=== PATIENT | female | born 1985 | race Caucasian/White ===

== ENCOUNTER 2022-10-30 01:14 | Observation (INO) | payer SELFPAY ==
[~2022-10-30] VITALS: Ht 160.6 cm; Wt 107.3 kg
[2022-10-30 01:46] LABS: BASOPHILS % (AUTO) 0 % (0-10); EOSINOPHILS # (AUTO) 0.1 10^3/uL (0.0-0.3); EOSINOPHILS % (AUTO) 2 % (0-10); HEMATOCRIT 45 % (35-52); LYMPHOCYTES % (AUTO) 41 % (12-44); MEAN CORPUSCULAR HEMOGLOBIN 28 pg (25-34); MEAN CORPUSCULAR HGB CONC 34 g/dL (32-36); MEAN CORPUSCULAR VOLUME 82 fL (80-99); MEAN PLATELET VOLUME 8.8 fL (9.0-12.2); MONOCYTES # (AUTO) 0.5 10^3/uL (0.0-1.0); MONOCYTES % (AUTO) 10 % (0-12); NEUTROPHILS # (AUTO) 2.2 10^3/uL (1.8-7.8); NEUTROPHILS % (AUTO) 46 % (42-75); PLATELET COUNT 170 10^3/uL (130-400); WHITE BLOOD COUNT 4.9 10^3/uL (4.3-11.0)
[2022-10-30] MEDS ORDERED: LACTATED RINGERS 1,000 ML IV STA (01:47)
--- NOTE | 2022-10-30 01:53 | ED Psychosocial ---
General Chief Complaint: Psych/Social Disorder Stated Complaint: MENTAL BREAKDOWN Source: patient, EMS Exam Limitations: no limitations History of Present Illness Date Seen by Provider: Oct 30, 2022 Time Seen by Provider: 01:19 Initial Comments This 37-year-old woman presents to the emergency room via EMS after ingesting rubbing alcohol in a quantity of about 700 mL of 91% isopropyl alcohol. Ingestion started around 1400. Patient normally drinks a fifth of vodka daily. She had no access to alcohol today and therefore substituted with isopropyl alcohol. She has been recently estranged from her mother in [place] and came to [place] to live with her brother. However, the living conditions at her brother's home are deplorable with bedbugs and a very unkept home. EMS workers report they intend to hotline the home because children are living in an unacceptable conditions. Patient additionally took hydroxyzine 50 mg after drinking the alcohol to help her calm down. She has previously been on numerous psychiatric medications including Lamictal, Abilify, hydroxyzine, trazodone, Lexapro, baclofen, and omeprazole, none of which she is currently taking. She has a history of anxiety, depression, insomnia, bipolar, and agoraphobia. She admits to using methamphetamine and heroin about 3 weeks ago. Allergies and Home Medications Allergies Coded Allergies: Latex, Natural Rubber (Unverified Allergy, Unknown, 10/30/22) Patient Home Medication List Home Medication List Reviewed: Yes No Active Prescriptions or Reported Meds Review of Systems Constitutional: no symptoms reported EENTM: no symptoms reported Respiratory: no symptoms reported Cardiovascular: no symptoms reported Gastrointestinal: see HPI, abdominal pain Genitourinary: no symptoms reported : No Musculoskeletal: no symptoms reported Skin: no symptoms reported Psychiatric/Neurological: See HPI Past Yowyrey-Wfilza-Izzqpq Hx Patient Social History Tobacco Use?: Yes Tobacco type used: Cigarettes Smoking Status: Current Everyday Smoker Substance use?: Yes Substance type: Methamphetamine, Opiates/Opioids (heroin) Alcohol Use?: Yes Alcohol Frequency: Daily Past Medical History Surgeries: Yes (D&C) Orthopedic (ankle) Respiratory: No Cardiac: No Neurological: No : No Genitourinary: No Gastrointestinal: Yes Liver Disease/Jaundice Musculoskeletal: No Endocrine: No HEENT: No Cancer: No Psychosocial: Yes (Agoraphobia, alcohol dependence) Sleep Difficulties, Anxiety, Bipolar, Depression Physical Exam Vital Signs - First Documented 10/30/22 01:15 Temp 37.0 Pulse 119 Resp 20 B/P (MAP) 130/102 (111) Pulse Ox 98 O2 Delivery Room Air Capillary Refill : Height, Weight, BMI Height: '" Weight: lbs. oz. kg; BMI Method: General Appearance: WD/WN, mild distress (tearful) HEENT: normal ENT inspection, pharynx normal Neck: normal inspection Respiratory: lungs clear, normal breath sounds, no respiratory distress Cardiovascular: no edema, tachycardia Gastrointestinal: normal bowel sounds, soft; No distended; tenderness (upper abdomen) Extremities: non-tender, normal inspection Neurologic/Psychiatric: no motor/sensory deficits, alert, normal mood/affect, oriented x 3 Appearance/Memory: appropriate appearance Behavior/Eye Contact: cooperative, good eye contact Thoughts/Hallucinations: other (tearful, denies SI or HI) Skin: normal color, warm/dry Progress/Results/Core Measures Results/Orders Lab Results Laboratory Tests Test 10/31/22 05:32 Range/Units White Blood Count 3.0 L 4.3-11.0 10^3/uL Red Blood Count 4.25 3.80-5.11 10^6/uL Hemoglobin 11.9 # 11.5-16.0 g/dL Hematocrit 36 35-52 % Mean Corpuscular Volume 86 80-99 fL Mean Corpuscular Hemoglobin 28 25-34 pg Mean Corpuscular Hemoglobin Concent 33 32-36 g/dL Red Cell Distribution Width 16.7 H 10.0-14.5 % Platelet Count 105 L 130-400 10^3/uL Mean Platelet Volume 9.0 9.0-12.2 fL Percent Immature Platelet Fraction 1.7 0.0-7.6 % Sodium Level 139 135-145 MMOL/L Potassium Level 3.3 L 3.6-5.0 MMOL/L Chloride Level 108 H 98-107 MMOL/L Carbon Dioxide Level 19 L 21-32 MMOL/L Anion Gap 12 5-14 MMOL/L Blood Urea Nitrogen 4 L 7-18 MG/DL Creatinine 0.85 0.60-1.30 MG/DL Estimat Glomerular Filtration Rate 91 BUN/Creatinine Ratio 5 Glucose Level 105 70-105 MG/DL Calcium Level 8.2 L 8.5-10.1 MG/DL Magnesium Level 1.4 L 1.6-2.4 MG/DL My Orders Medications Given in ED Vital Signs/I&O Progress Progress Note : Progress Note Patient was interviewed and examined. Poison control was contacted. They recommended symptomatic care. Patient had epigastric pain and tenderness and was therefore treated with Protonix, GI cocktail, and Zofran. She had refractory nausea and a scopolamine patch was placed. IV hydration was provided. She was found to have severe hypokalemia. Replacement was initiated by IV route. Patient was ultimately admitted to help facilitate further potassium replacement via IV route. She also needs a social work consultation because of her living situation and history of substance abuse. I discussed the case with Dr. Jhaveri (hospitalist) who excepted admission. Alcohol withdrawal protocol was ordered. Patient received Xanax and Ativan for her anxiousness. All labs were reviewed by me in their entirety including CBC, CMP, alcohol, UDS, urinalysis, lipase. EKG was interpreted by me. Poison control was consulted by me as well. Initial ECG Impression Date: Oct 30, 2022 Initial ECG Impression Time: 01:46 Initial ECG Rate: 103 Initial ECG Rhythm: S.Tach Comment Sinus tachycardia with no ST elevation or depression. No abnormal intervals or axis deviation. Departure Communication (Admissions) Time/Spoke to Admitting Phy: 03:20 Dr. Jhaveri Impression Primary Impression: Hypokalemia Additional Impressions: Ingestion of toxic substance Polysubstance abuse Epigastric pain Nausea Alcohol dependence Qualified Codes: F10.288 - Alcohol dependence with other alcohol-induced disorder Unsatisfactory living conditions Disposition: ADMITTED INPATIENT Condition: Improved Admissions Decision to Admit Reason: Admit from ER (General) Decision to Admit/Date: Oct 30, 2022 Time/Decision to Admit Time: 03:20 Departure-Patient Inst. Referrals: NO,LOCAL PHYSICIAN (PCP/Family) Primary Care Physician Scripts No Active Prescriptions or Reported Meds GUIDO PINEDA MD Oct 30, 2022 01:53
[2022-10-30 01:54] LABS: ALBUMIN 4.3 GM/DL (3.2-4.5); CHLORIDE 104 MMOL/L (98-107); SODIUM 140 MMOL/L (135-145)
[2022-10-30 01:57] LABS: GLUCOSE 102 MG/DL (70-105); TOTAL PROTEIN 8.3 GM/DL (6.4-8.2)
[2022-10-30 01:58] LABS: CARBON DIOXIDE 18 MMOL/L (21-32)
[2022-10-30 01:59] LABS: BILIRUBIN,TOTAL 0.5 MG/DL (0.1-1.0)
[2022-10-30] MEDS ORDERED: PANTOPRAZOLE 40 MG (PROTONIX) VIAL IV ONE (02:00)
[2022-10-30] MEDS ORDERED: ONDANSETRON 4 MG/2 ML (SDV) Z0FRAN IVP ONE (02:00)
[2022-10-30] MEDS ORDERED: ANTACID SUSP 30 ML UDC (MYLANTA) PO ONE (02:00)
[2022-10-30] MEDS ORDERED: LIDOCAINE 2% VISCOUS 15 ML UDC PO ONE (02:00)
[2022-10-30 02:01] LABS: ALKALINE PHOSPHATASE 79 U/L (40-136); CREATININE SERUM 0.94 MG/DL (0.60-1.30); GFR ESTIMATED 81; POTASSIUM 2.6 MMOL/L (3.6-5.0)
[2022-10-30 02:02] LABS: BUN/CREATININE RATIO 4
[2022-10-30 02:03] LABS: ACETAMINOPHEN < 10 UG/ML (10-30); SALICYLATE < 5.0 MG/DL (5.0-20.0)
[2022-10-30 02:04] LABS: ALANINE AMINOTRANSFERASE 63 U/L (0-55)
[2022-10-30 02:32] LABS: BILIRUBIN,URINE NEGATIVE (NEGATIVE); CLARITY,URINE CLOUDY; COLOR,URINE YELLOW; GLUCOSE, URINE (UA) NEGATIVE (NEGATIVE); KETONES,URINE NEGATIVE (NEGATIVE); LEUKOCYTE ESTERASE ,URINE NEGATIVE (NEGATIVE); NITRITE,URINE NEGATIVE (NEGATIVE); PROTEIN,URINE 1+ (NEGATIVE)
[2022-10-30] MEDS ORDERED: NS IV 1000 ML 1,000 ML IV STA (02:32)
[2022-10-30 02:38] LABS: AMPHETAMINE SCREEN, URINE POSITIVE (NEGATIVE); BACTERIA,URINE LARGE /HPF; BARBITURATE SCREEN URINE NEGATIVE (NEGATIVE); BENZODIAZEPINES SCREEN URINE NEGATIVE (NEGATIVE); CANNABINOID SCREEN, URINE NEGATIVE (NEGATIVE); COCAINE SCREEN URINE NEGATIVE (NEGATIVE); METHADONE STAT NEGATIVE (NEGATIVE); OPIATE SCREEN URINE NEGATIVE (NEGATIVE); OXYCODONE STAT NEGATIVE (NEGATIVE); PROPOXYPHENE STAT NEGATIVE (NEGATIVE); RBC,URINE RARE /HPF; SQUAMOUS EPITHELIAL CELL,UR 0-2 /HPF; TRICYCLIC ANTIDEPRESSANTS SCRE NEGATIVE (NEGATIVE); WBC,URINE 0-2 /HPF
[2022-10-30] MEDS ORDERED: POTASSIUM CL 10MEQ/50ML IVPB 50 ML IV ONE (02:45)
[2022-10-30] MEDS ORDERED: ALPRAZolam 0.25 MG (XANAX) TAB PO ONE (03:00)
[2022-10-30 03:18] LABS: INR 1.1 (0.8-1.4); PROTHROMBIN TIME PATIENT 14.5 SEC (12.2-14.7)
[2022-10-30] MEDS ORDERED: LORazepam 0.5 MG (ATIVAN) TABLET PO STA (03:59)
[2022-10-30] MEDS ORDERED: SCOPOLAMINE 1.5 MG (TRANSDERM-SCOP) PATCH TD ONE (04:00)
[2022-10-30 05:09] VITALS: BP 148/67
[2022-10-30] MEDS ORDERED: ONDANSETRON 4 MG/2 ML (SDV) Z0FRAN IV PRN (05:15)
[2022-10-30] MEDS ORDERED: 1/2 NS IV SOLUTION 1,000 ML IV PRN (05:15)
[2022-10-30] MEDS ORDERED: D5 1/2 NS 1000 ML IV SOLUTION 1,000 ML IV PRN (05:15)
[2022-10-30] MEDS ORDERED: ANTACID SUSP 30 ML UDC (MYLANTA) PO PRN (05:15)
[2022-10-30] MEDS ORDERED: SENNA W/DOCUSATE (SENOKOT S) TABLET PO PRN (05:15)
[2022-10-30] MEDS ORDERED: LORazepam INJ 2 MG/ML (ATIVAN) VIAL IM/IV PRN (05:15)
[2022-10-30] MEDS ORDERED: ONDANSETRON 4 MG (ZOFRAN) ORAL DISSOLVE TAB SL PRN (05:15)
[2022-10-30] MEDS ORDERED: LORazepam INJ 2 MG/ML (ATIVAN) VIAL IV PRN (05:15)
[2022-10-30] MEDS: NS IV 1000 ML 1,000 ML IV SCH ×4 (05:21→20:44)
[2022-10-30] MEDS: POTASSIUM CL 10MEQ/50ML IVPB 50 ML IV SCH ×5 (05:22→12:30)
[2022-10-30] MEDS: LORazepam 1 MG (ATIVAN) TAB PO PRN ×9 (05:40→18:48)
[2022-10-30] MEDS: MULTIVIT W/MINERALS TAB (THERAGRAN M) PO SCH (06:42)
[2022-10-30] MEDS: PANTOPRAZOLE 40 MG (PROTONIX) TAB PO SCH (06:42)
[2022-10-30] MEDS: THIAMINE 100 MG (VITAMIN B-1) TAB PO SCH (06:42)
[2022-10-30 08:00] VITALS: BP 143/87
[2022-10-30] MEDS: FOLIC ACID 1 MG TAB PO SCH (08:03)
[2022-10-30] MEDS: MAGNESIUM OXIDE (MAG-OX)400 MG TAB PO SCH ×2 (08:04→19:37)
[2022-10-30 11:35] VITALS: BP 133/73
--- NOTE | 2022-10-30 13:54 | History & Physical-Hospitalist ---
History of Present Illness HPI/Chief Complaint Patient is a 37-year-old female with past medical history of alcohol abuse who presented to the emergency department after appropriate alcohol ingestion. During my exam she is sleeping soundly and only responded to sternal rub. She opened her eyes and told me she just wanted to sleep and then rolled over. All history is obtained from the records because of this. Apparently she consumed 700 mL of isopropyl alcohol because she did not have access to any other alcohol today. She normally drinks 1/5 of vodka per day. She recently moved here from [place] and has been staying with her brother. She was found to be hypokalemic and was admitted for further management. Source: patient Date Seen 10/30/22 Time Seen by a Provider: 10:30 Attending Physician No,Local Physician PCP Admitting Physician: Graham Jhaveri MD Attending Physician: Graham Jhaveri MD Referring Physician Date of Admission Oct 30, 2022 at 03:32 Home Medications & Allergies Home Medications Reviewed patient Home Medication Reconciliation performed by pharmacy medication reconciliations armorer technician and/or nursing. Patients Allergies have been reviewed. Allergies Allergies Coded Allergies Latex, Natural Rubber (Unverified Allergy, Unknown, 10/30/22) Past Rnzairj-Wdrbfn-Ljeagi Hx Patient Social History Tobacco Use?: Yes Tobacco type used: Cigarettes Smoking Status: Current Everyday Smoker Use of E-Cig and/or Vaping dev: No Substance use?: Yes Substance type: Amphetamines, Methamphetamine Additional substance use comme: HEROIN Substance frequency: Once in a while Alcohol Use?: Yes Alcohol type: Hard Liquor Additional alcohol type: VODKA Alcohol Frequency: Daily Additional Alcohol Comments: DRINKS A FIFTH DAILY Pt feels they are or have been: No Immunizations Up To Date First/Initial COVID19 Vaccinat: NONE Tetanus Booster (TDap): More Than 5 Years Hepatitis A: Yes Hepatitis B: Yes Current Status status: No Advance Directives: No Communicates: Verbally Primary Language: Dominican Preferred Spoken Language: Dominican Is interpretation needed?: No Sensory deficits: Vision impairment Implanted or Applied Medical D: Orthopedic hardware Past Medical History Nursing Suicide Risk Notes: DENIES SUICIDAL IDEATION. Reports history of anxiety, depression, insomnia, bipolar, and agoraphobia to ER. Review of Systems Constitutional: see HPI Physical Exam Physical Exam Vital Signs Vital Signs - First Documented 10/30/22 01:15 Temp 37.0 Pulse 119 Resp 20 B/P (MAP) 130/102 (111) Pulse Ox 98 O2 Delivery Room Air Capillary Refill : Less Than 3 Seconds Height, Weight, BMI Height: '" Weight: lbs. oz. kg; 41.60 BMI Method: General Appearance: Obese, Other (sleeping soundly) Respiratory: Lungs Clear, No Respiratory Distress Cardiovascular: Regular Rate, Rhythm, No Murmur Gastrointestinal: Normal Bowel Sounds, Non Tender, Soft Neurologic/Psychiatric: Alert, Other (sleeping did not want to wake up to participate in exam) Skin: Other (multiple abrasions with excoriations all over both arms and some on legs) Results Results/Procedures Labs Laboratory Tests 10/30/22 01:38 Patient resulted labs reviewed. Assessment/Plan Admission Diagnosis Hypokalemia Admission Status: Observation Assessment and Plan Hypokalemia Isopropyl alcohol ingestion Alcohol dependence Polysubstance abuse Reported bed bug infestation Transaminitis Morbid Obesity Poison control contacted and recommended supportive care erika [employer] consulting services manager consulted, appreciate their assistance [facility] protocol Diagnosis/Problems Diagnosis/Problems (1) Obesity Qualifiers: Obesity type: unspecified obesity type Obesity classification: adult class 3 (BMI >= 40) Serious obesity comorbidity presence: without serious comorbidity Body mass index: BMI 40.0-44.9 Qualified Codes: E66.01 - Morbid (severe) obesity due to excess calories; Z68.41 - Body mass index [BMI] 40.0- 44.9, adult (2) Infestation by bed bug (3) Transaminitis (4) Ingestion of toxic substance Status: Acute (5) Unsatisfactory living conditions Status: Acute (6) Polysubstance abuse Status: Acute (7) Alcohol dependence Status: Acute Qualifiers: Substance use status: other alcohol-induced disorder Qualified Codes: F10.288 - Alcohol dependence with other alcohol-induced disorder (8) Hypokalemia Status: Acute ELIEZER MICHAELS MD Oct 30, 2022 13:54
[2022-10-30 16:05] VITALS: BP 127/71
[2022-10-30 20:01] VITALS: BP 122/59
[2022-10-30 23:46] VITALS: BP 146/84
[2022-10-31] MEDS: LORazepam 1 MG (ATIVAN) TAB PO PRN ×2 (00:01→02:04)
[2022-10-31] MEDS: NS IV 1000 ML 1,000 ML IV SCH ×2 (03:27→10:05)
[2022-10-31 03:37] VITALS: BP 142/78
[2022-10-31 05:48] LABS: HEMOGLOBIN 11.9 g/dL (11.5-16.0)
[2022-10-31 05:59] LABS: POTASSIUM 3.3 MMOL/L (3.6-5.0)
[2022-10-31 06:01] LABS: CALCIUM 8.2 MG/DL (8.5-10.1)
[2022-10-31 06:05] LABS: CREATININE SERUM 0.85 MG/DL (0.60-1.30)
[2022-10-31 06:07] LABS: MAGNESIUM 1.4 MG/DL (1.6-2.4)
[2022-10-31 08:06] VITALS: BP 145/75
[2022-10-31] MEDS: MULTIVIT W/MINERALS TAB (THERAGRAN M) PO SCH (10:04)
[2022-10-31] MEDS: THIAMINE 100 MG (VITAMIN B-1) TAB PO SCH (10:04)
[2022-10-31] MEDS: PANTOPRAZOLE 40 MG (PROTONIX) TAB PO SCH (10:04)
[2022-10-31] MEDS: FOLIC ACID 1 MG TAB PO SCH (10:04)
[2022-10-31] MEDS: MAGNESIUM OXIDE (MAG-OX)400 MG TAB PO SCH (10:05)
[2022-10-31] MEDS: MAGNESIUM 1 GM/100 ML IVPB 100 ML IV SCH ×2 (10:05→11:05)
--- NOTE | 2022-10-31 11:17 | Discharge Summary ---
Diagnosis/Chief Complaint Date of Admission Oct 30, 2022 at 03:32 Date of Discharge Discharge Date: Oct 31, 2022 Admission Diagnosis Hypokalemia Primary Care No,Local Physician Discharge Diagnosis (1) Obesity (2) Infestation by bed bug (3) Transaminitis (4) Ingestion of toxic substance Status: Acute (5) Unsatisfactory living conditions Status: Acute (6) Polysubstance abuse Status: Acute (7) Alcohol dependence Status: Acute (8) Hypokalemia Status: Acute Discharge Summary Discharge Physical Exam Allergies: Coded Allergies: Latex, Natural Rubber (Unverified Allergy, Unknown, 10/30/22) Vitals & I&Os Vital Signs Date Time Temp Pulse Resp B/P (MAP) Pulse Ox O2 Delivery O2 Flow Rate FiO2 10/31/22 08:06 37.9 113 20 145/75 (98) Room Air 10/31/22 03:37 94 General Appearance: No Apparent Distress, Obese Respiratory: Lungs Clear Cardiovascular: Regular Rate, Rhythm Neurologic/Psychiatric: Alert, Oriented x3 Hospital Course Pt was admitted due to hypokalemia and isopropyl alcohol ingestion. She has a history of alcohol use disorder and was unable to access her normal fifth of vodka a day and so instead drink rubbing alcohol. She was monitored overnight for supportive care per poison control recommendations. She did well. Her potassium was replaced. She was monitored for alcohol withdrawal and had minimal symptoms. Social work was consulted and assisted with getting her set up for addiction treatment with [facility]. She was discharged home in stable and improved condition to follow-up with those appointments for further addiction treatment. Labs (last 24 hrs) Laboratory Tests 10/31/22 05:32: White Blood Count 3.0L, Red Blood Count 4.25, Hemoglobin 11.9#, Hematocrit 36, Mean Corpuscular Volume 86, Mean Corpuscular Hemoglobin 28, Mean Corpuscular Hemoglobin Concent 33, Red Cell Distribution Width 16.7H, Platelet Count 105L, Mean Platelet Volume 9.0, Percent Immature Platelet Fraction 1.7, Sodium Level 139, Potassium Level 3.3L, Chloride Level 108H, Carbon Dioxide Level 19L, Anion Gap 12, Blood Urea Nitrogen 4L, Creatinine 0.85, Estimat Glomerular Filtration Rate 91, BUN/Creatinine Ratio 5, Glucose Level 105, Calcium Level 8.2L, Magnesium Level 1.4L Microbiology 10/30/22 Urine Culture - Preliminary, Resulted Gram Negative Augustus Patient resulted labs reviewed. Pending Labs Laboratory Tests 10/31/22 05:32: White Blood Count 3.0, Red Blood Count 4.25, Hemoglobin 11.9, Hematocrit 36, Mean Corpuscular Volume 86, Mean Corpuscular Hemoglobin 28, Mean Corpuscular Hemoglobin Concent 33, Red Cell Distribution Width 16.7, Platelet Count 105, Mean Platelet Volume 9.0, Percent Immature Platelet Fraction 1.7, Sodium Level 139, Potassium Level 3.3, Chloride Level 108, Carbon Dioxide Level 19, Anion Gap 12, Blood Urea Nitrogen 4, Creatinine 0.85, Estimat Glomerular Filtration Rate 91, BUN/Creatinine Ratio 5, Glucose Level 105, Calcium Level 8.2, Magnesium Lev el 1.4 Discussion & Recommendations Discharge Planning: >30 minutes discharge planning Discharge Instructions to patient/family Please see electronic discharge instructions given to patient. Copy Copies To 1: [facility] [place] [place] Problem Qualifiers (1) Obesity: Obesity type: unspecified obesity type Obesity classification: adult class 3 (BMI >= 40) Serious obesity comorbidity presence: without serious comorbidity Body mass index: BMI 40.0-44.9 Qualified Codes: E66.01 - Morbid (severe) obesity due to excess calories; Z68.41 - Body mass index [BMI] 40.0-44.9, adult (2) Alcohol dependence: Substance use status: other alcohol-induced disorder Qualified Codes: F10.288 - Alcohol dependence with other alcohol-induced disorder ELIEZER MICHAELS MD Oct 31, 2022 11:17
--- NOTE | 2022-10-31 11:51 | Discharge Inst-Simple/Standard ---
Discharge Inst-Standard Patient Instructions/Follow Up Plan of Care/Instructions/FU: Please continue to take your medications as written. Please follow up with [facility] as directed on your follow up cards to follow up this hospital stay. Activity as Tolerated: Yes Discharge Diet: No Restrictions Return to The Hospital For: Chest pain, headaches, tremors, confusion, seizures, shortness of breath, fever, weakness, if you feel you are getting worse. ELIEZER MICHAELS MD Oct 31, 2022 11:51
[2022-10-31 11:52] VITALS: BP 129/64
== END 2022-10-31 11:51 | disposition home or self-care (01) ==
LOC: ER 01:19 → UNDOADMOB 03:32 → 4TH 03:32 → UNDODISOB 10-31 11:51
PROVIDERS: ADMIT Internal Medicine; ATTEND Internal Medicine
DX: E66.01 Morbid (severe) obesity due to excess calories (principal); B88.8 Other specified infestations; R74.01 Elevation of levels of liver transaminase levels; T18.9XXA Foreign body of alimentary tract, part unspecified, initial encounter; E87.6 Hypokalemia; T51.2X1A Toxic effect of 2-Propanol, accidental (unintentional), initial encounter; F19.10 Other psychoactive substance abuse, uncomplicated; F10.288 Alcohol dependence with other alcohol-induced disorder; F17.210 Nicotine dependence, cigarettes, uncomplicated; Z68.41 Body mass index [BMI] 40.0-44.9, adult; Z59.1 Inadequate housing
CPT/HCPCS: 80048; 80053; 80306; 81000; 83690; 83735 ×2; 84443; 84703; 85025; 85027; 85610; 85730; 87077; 87088; 87186; 93005; 93041; 99283; G0480 ×3; 36415; 80320; 80329; 96361; 96366; 96375; 96376; G0378

== ENCOUNTER 2022-10-31 21:44 | Emergency (ER) | payer SELFPAY ==
[2022-10-31 21:45] VITALS: BP 119/82
[2022-10-31] MEDS ORDERED: LACTATED RINGERS 1,000 ML IV ONE ×2 (22:00→23:00)
[2022-10-31] MEDS ORDERED: LIDOCAINE UROJET 2% GEL 10 ML PKG TOP ONE (22:00)
--- NOTE | 2022-10-31 22:10 | ED Psychosocial ---
General Stated Complaint: ETOH Source: patient, EMS, old records Exam Limitations: intoxication History of Present Illness Date Seen by Provider: Oct 31, 2022 Time Seen by Provider: 21:45 Initial Comments PT ARRIVES VIA EMS FROM HOME EMS REPORT THAT FAMILY CALLED DUE TO PT BEING INTOXICATED. PT HAS A LONG HISTORY OF ALCOHOL ABUSE, STATES SHE HAD NOT DRANK FOR ABOUT 2 YEARS, THEN STARTED DRINKING HEAVILY AGAIN 1 1/2 YEARS AGO PT STATES SHE MOVED HERE FROM [place] 2 WEEKS AGO, CURRENTLY LIVING WITH HER BROTHER. PT STATES FAMILY WANTED HER TO MOVE HERE BECAUSE SHE WAS NOT ABLE TO TAKE CARE OF HERSELF THERE SHE STATES SHE IS NOT HAPPY WITH THE LIVING SITUATION HERE. SHE ALSO MENTIONS LIVING IN [place], BUT IT IS UNCLEAR WHEN SHE WAS LIVING THERE SHE STATES SHE HAS HAD A FIFTH OF VODKA TODAY, STATES NORMALLY SHE DRINKS "ALOT MORE" THAN THAT SHE STATES SHE HAS TAKEN 2 HYDROXYZINE TONIGHT. SHE DENIES ANY SUICIDAL THOUGHTS OR ATTEMPTS. PER EMS, FAMILY REPORTED THERE WERE SOME IBUPROFEN MISSING AND 9 TRAZADONE MISSING. PT DENIES TAKING ANYTHING OTHER THAN THE HYDROXYZINE. PT STATES SHE USED TO BE ON MULTIPLE PSYCH MEDICATIONS, BUT HAS NOT BEEN ON ANY FOR OVER A YEAR. PT HAS ADMITTED TO USING METHAMPHETAMINES, BUT NOT TODAY. EMS REPORTED THAT THERE WERE BED BUGS AT THE RESIDENCE. PT WAS SEEN HERE YESTERDAY, ADMITTED AND RELEASED EARLIER TODAY FOR THIS SAME ISSUE--PT HAD REPORTEDLY BEEN DRINKING RUBBING ALCOHOL AT THAT TIME SHE DID NOT HAVE ANY REGULAR DRINKING ALCOHOL AT THAT TIME SHE ALSO ADMITTED TO TAKING HYDROXYZINE AT THAT TIME WELL. SHE TESTED POSITIVE FOR AMPHETAMINES/METHAMPHETAMINES AT THAT TIME. PT STATES SOON SHE WAS DISMISSED TODAY, SHE WALKED TO THE LIQUOR STORE, AND THEN IMMEDIATELY STARTED DRINKING AGAIN. PT VOICES NO COMPLAINTS AT THIS TIME Allergies and Home Medications Allergies Coded Allergies: Latex, Natural Rubber (Unverified Allergy, Unknown, 10/30/22) Patient Home Medication List Home Medication List Reviewed: Yes No Active Prescriptions or Reported Meds Review of Systems Constitutional: no symptoms reported Respiratory: no symptoms reported Cardiovascular: no symptoms reported Gastrointestinal: no symptoms reported Genitourinary: no symptoms reported (BUT PT HAS URINATED ALL OVER THE EMS COT AND ALL OVER THE AMBULANCE AND ALL OVER THE FLOOR ALL THE WAY INTO ER FROM THE AMBULANCE. ) Musculoskeletal: no symptoms reported Skin: other (MULTIPLE SORES/SCARS/SCABS ON ARMS AND LEGS) Psychiatric/Neurological: See HPI Past Ubirgry-Fhxatg-Yeajjq Hx Patient Social History Tobacco Use?: Yes Tobacco type used: Cigarettes Smoking Status: Current Everyday Smoker Substance use?: Yes Substance type: Amphetamines, Methamphetamine, Misuse of prescript meds Additional substance use comme: HEROIN Substance frequency: Once in a while Alcohol Use?: Yes Alcohol type: Hard Liquor Alcohol Frequency: Daily Immunizations Up To Date First/Initial COVID19 Vaccinat: NONE Past Medical History Surgery/Hospitalization HX: BIPOLAR, ANXIETY, DEPRESSION, INSOMNIA, AGORAPHOBIC, LIVER DISEASE DNC, RIGHT ANKLE Surgeries: Yes Orthopedic Respiratory: No Cardiac: No Neurological: No : No Genitourinary: No Gastrointestinal: Yes Liver Disease/Jaundice Musculoskeletal: Yes (RIGHT ANKLE SURGERY) Endocrine: No (OBESE) HEENT: No Cancer: No Psychosocial: Yes (ALCOHOL AND SUBSTANCE ABUSE; AGORAPHOBIA) Sleep Difficulties, Anxiety, Bipolar, Depression Integumentary: No Blood Disorders: No Family Medical History SOCIAL HISTORY: -SMOKES AT LEAST 1 PPD -ETOH--DRINKS AT LEAST A FIFTH OF VODKA A DAY, FREQUENTLY MORE THAN THAT -DRUGS--METHAMPHETAMINES, AMPHETAMINES, HEROIN, RX DRUGS. PAST SURGICAL HISTORY: -RIGHT ANKLE SURGERY Physical Exam Vital Signs - First Documented 10/31/22 21:45 Temp 36.4 Pulse 110 Resp 16 B/P (MAP) 119/82 (94) Capillary Refill : Height, Weight, BMI Height: '" Weight: lbs. oz. kg; 41.60 BMI Method: General Appearance: WD/WN, no apparent distress, obese, other (DROWSY, SPEECH SOMEWHAT SLURRED, DOES NOT APPEAR TO BE IN ANY DISTRESS OR DISCOMFORT. PT IS UNKEMPT AND MALODOROUS, AND HAS BEEN INCONTINENT OF URINE ) HEENT: PERRL/EOMI Neck: normal inspection Respiratory: normal breath sounds, no respiratory distress, no accessory muscle use Cardiovascular: regular rate, rhythm, no murmur Gastrointestinal: non tender, soft Extremities: normal range of motion, non-tender, no pedal edema, normal capillary refill Neurologic/Psychiatric: no motor/sensory deficits, oriented x 3, other (APPEARS INTOXICATED. ) Appearance/Memory: disheveled Behavior/Eye Contact: cooperative Thoughts/Hallucinations: no apparent hallucination Skin: normal color, warm/dry, other (EXTENSIVE SORES/SCARS/SCABS TO FACE, ARMS AND LEGS. NO BLEEDING OR SIGNS OF INFECTION. ) Progress/Results/Core Measures Results/Orders Lab Results Laboratory Tests Test 10/31/22 21:58 10/31/22 22:05 Range/Units White Blood Count 2.8 L 4.3-11.0 10^3/uL Red Blood Count 4.80 3.80-5.11 10^6/uL Hemoglobin 13.3 11.5-16.0 g/dL Hematocrit 41 35-52 % Mean Corpuscular Volume 85 80-99 fL Mean Corpuscular Hemoglobin 28 25-34 pg Mean Corpuscular Hemoglobin Concent 33 32-36 g/dL Red Cell Distribution Width 16.8 H 10.0-14.5 % Platelet Count 106 L 130-400 10^3/uL Mean Platelet Volume 9.2 9.0-12.2 fL Immature Granulocyte % (Auto) 0 % Neutrophils (%) (Auto) 68 42-75 % Lymphocytes (%) (Auto) 22 12-44 % Monocytes (%) (Auto) 9 0-12 % Eosinophils (%) (Auto) 1 0-10 % Basophils (%) (Auto) 0 0-10 % Neutrophils # (Auto) 1.9 1.8-7.8 10^3/uL Lymphocytes # (Auto) 0.6 L 1.0-4.0 10^3/uL Monocytes # (Auto) 0.2 0.0-1.0 10^3/uL Eosinophils # (Auto) 0.0 0.0-0.3 10^3/uL Basophils # (Auto) 0.0 0.0-0.1 10^3/uL Immature Granulocyte # (Auto) 0.0 0.0-0.1 10^3/uL Percent Immature Platelet Fraction 2.4 0.0-7.6 % Sodium Level 145 135-145 MMOL/L Potassium Level 3.1 L 3.6-5.0 MMOL/L Chloride Level 111 H 98-107 MMOL/L Carbon Dioxide Level 23 21-32 MMOL/L Anion Gap 11 5-14 MMOL/L Blood Urea Nitrogen < 2 L 7-18 MG/DL Creatinine 0.74 0.60-1.30 MG/DL Estimat Glomerular Filtration Rate 107 BUN/Creatinine Ratio 3 Glucose Level 113 H 70-105 MG/DL Calcium Level 8.6 8.5-10.1 MG/DL Corrected Calcium 8.7 8.5-10.1 MG/DL Total Bilirubin 0.3 0.1-1.0 MG/DL Aspartate Amino Transf (AST/SGOT) 66 H 5-34 U/L Alanine Aminotransferase (ALT/SGPT) 49 0-55 U/L Alkaline Phosphatase 74 40-136 U/L Total Protein 7.3 6.4-8.2 GM/DL Albumin 3.9 3.2-4.5 GM/DL Serum Test, Qualitative NEGATIVE NEGATIVE Acetaminophen Level < 10 L 10-30 UG/ML Serum Alcohol 268 H <10 MG/DL Smear Scan YES Urine Color YELLOW Urine Clarity CLEAR Urine pH 7.0 5-9 Urine Specific Stephenson <=1.005 1.016-1.022 Urine Protein NEGATIVE NEGATIVE Urine Glucose (UA) NEGATIVE NEGATIVE Urine Ketones NEGATIVE NEGATIVE Urine Nitrite NEGATIVE NEGATIVE Urine Bilirubin NEGATIVE NEGATIVE Urine Urobilinogen 0.2 < = 1.0 MG/DL Urine Leukocyte Esterase NEGATIVE NEGATIVE Urine RBC (Auto) TRACE-I H NEGATIVE Urine RBC RARE /HPF Urine WBC NONE /HPF Urine Squamous Epithelial Cells RARE /HPF Urine Crystals NONE /LPF Urine Bacteria NEGATIVE /HPF Urine Casts NONE /LPF Urine Mucus NEGATIVE /LPF Urine Culture Indicated NO Urine Opiates Screen NEGATIVE NEGATIVE Urine Oxycodone Screen NEGATIVE NEGATIVE Urine Methadone Screen NEGATIVE NEGATIVE Urine Propoxyphene Screen NEGATIVE NEGATIVE Urine Barbiturates Screen NEGATIVE NEGATIVE Ur Tricyclic Antidepressants Screen NEGATIVE NEGATIVE Urine Phencyclidine Screen NEGATIVE NEGATIVE Urine Amphetamines Screen NEGATIVE NEGATIVE Urine Methamphetamines Screen NEGATIVE NEGATIVE Urine Benzodiazepines Screen POSITIVE H NEGATIVE Urine Cocaine Screen NEGATIVE NEGATIVE Urine Cannabinoids Screen NEGATIVE NEGATIVE My Orders Orders - ALAN WANG DO Ed Iv/Invasive Line Start (10/31/22 21:51) Catheter(Urinary) Insert & Ass 03,15 (10/31/22 21:51) Monitor-Rhythm Ecg Trace Only (10/31/22 21:51) Acetaminophen (10/31/22 21:51) Alcohol (10/31/22 21:51) Cbc With Automated Diff (10/31/22 21:51) Comprehensive Metabolic Panel (10/31/22 21:51) Drug Screen Stat (Urine) (10/31/22 21:51) Hcg,Qualitative Serum (10/31/22 21:51) Ua Culture If Indicated (10/31/22 21:51) Ed Iv/Invasive Line Start (10/31/22 21:51) Lactated Ringers (Lr 1000 Ml Iv Solution (10/31/22 22:00) Lidocaine 2% (Urojet) (Xylocaine Urojet) (10/31/22 22:00) Ed Iv/Invasive Line Start (10/31/22 22:55) Lactated Ringers (Lr 1000 Ml Iv Solution (10/31/22 23:00) Medications Given in ED Current Medications Medications Dose Ordered Sig/Danya Route Start Time Stop Time Status Last Admin Dose Admin Lactated Ringer's 1,000 ml @ 0 mls/hr Q0M ONCE IV 10/31/22 22:00 10/31/22 22:01 DC 10/31/22 22:02 0 MLS/HR Lactated Ringer's 1,000 ml @ 0 mls/hr Q0M ONCE IV 10/31/22 23:00 10/31/22 23:01 DC 10/31/22 23:19 1,000 MLS/HR Vital Signs/I&O 10/31/22 21:45 Temp 36.4 Pulse 110 Resp 16 B/P (MAP) 119/82 (94) Progress Progress Note : Progress Note GIVEN: -IV FLUIDS 0--PT HAS PULLED OUT IV, RIPPED OFF BP CUFF AND O2 SAT MONITOR. IV RESTARTED. PT REMAINS DROWSY, BUT EASILY AWAKENS. NO SNOROUS BREATHING OR HYPOXIA 2358--PT HAS AGAIN PULLED OUT HER IV, SHE HAS DISCONNECTED HER [place] TUBING--NOW URINE LEAKING OUT ALL OVER FLOOR, AND IS STANDING IN THE ROOM, ATTEMPTING TO CLEAN HERSELF WITH BEDDING. SHE IS ABLE TO STAND AND WALK ON HER OWN WITH A STEADY GAIT AND SPEECH IS NO LONGER SLURRED, AND PT IS NOW CURSING AT STAFF AND IS VERY AWAKE AND ALERT. ADVISED HER THAT THERE WAS NO INDICATION FOR ADMIT AT THIS TIME, AND WERE NOW DISMISSING HER. PT HAS NOT VOICED ANY SUICIDAL OR HOMICIDAL THOUGHTS AT ANY TIME SHE HAS NO INTEREST IN ANY KIND OF TREATMENT FOR ALCOHOL OR SUBSTANCE ABUSE. NO FAMILY HAVE CALLED OR CAME TO ER TO CHECK ON PT PT STATES SHE CALLED BROTHER'S NUMBER TO PICK HER UP, BUT NO ANSWER. PT WAS GIVEN PAPER SCRUBS AND HOSPITAL SOCKS TO WEAR HOME, WELL A BLANKET, HER CLOTHING IS SATURATED WITH URINE AND IV FLUIDS VITALS STABLE. PT VOICES NO PHYSICAL COMPLAINTS OF ANY KIND DURING ENTIRE ER STAY REVIEWED PT'S PRIOR VISIT INCLUDING ER VISIT, TEST RESULTS, H&P AND DISCHARGE SUMMARY Departure Impression Primary Impression: Alcohol abuse Additional Impressions: Acute alcoholic intoxication Illicit drug use Hypokalemia Disposition: HOME, SELF-CARE Condition: Stable Departure-Patient Inst. Decision time for Depature: 00:03 Referrals: NO,LOCAL PHYSICIAN (PCP/Family) Primary Care Physician Patient Instructions: Alcohol Use Disorder (DC), ALCOHOL AND SUBSTANCE ABUSE Add. Discharge Instructions: NO ALCOHOL OR DRUGS FOLLOW UP WITH LOCAL DR OF CHOICE FOR FURTHER CARE Scripts No Active Prescriptions or Reported Meds ALAN WANG DO Oct 31, 2022 22:10
[2022-10-31 22:11] LABS: BILIRUBIN,URINE NEGATIVE (NEGATIVE); CLARITY,URINE CLEAR; COLOR,URINE YELLOW; GLUCOSE, URINE (UA) NEGATIVE (NEGATIVE); KETONES,URINE NEGATIVE (NEGATIVE); LEUKOCYTE ESTERASE ,URINE NEGATIVE (NEGATIVE); NITRITE,URINE NEGATIVE (NEGATIVE); PROTEIN,URINE NEGATIVE (NEGATIVE)
[2022-10-31 22:12] LABS: BASOPHILS % (AUTO) 0 % (0-10); HEMOGLOBIN 13.3 g/dL (11.5-16.0); LYMPHOCYTES # (AUTO) 0.6 10^3/uL (1.0-4.0); MONOCYTES # (AUTO) 0.2 10^3/uL (0.0-1.0)
[2022-10-31 22:14] LABS: EOSINOPHILS % (AUTO) 1 % (0-10); HEMATOCRIT 41 % (35-52); LYMPHOCYTES % (AUTO) 22 % (12-44); MEAN CORPUSCULAR HEMOGLOBIN 28 pg (25-34); MEAN CORPUSCULAR HGB CONC 33 g/dL (32-36); MEAN CORPUSCULAR VOLUME 85 fL (80-99); MEAN PLATELET VOLUME 9.2 fL (9.0-12.2); MONOCYTES % (AUTO) 9 % (0-12); NEUTROPHILS # (AUTO) 1.9 10^3/uL (1.8-7.8); NEUTROPHILS % (AUTO) 68 % (42-75); PLATELET COUNT 106 10^3/uL (130-400); WHITE BLOOD COUNT 2.8 10^3/uL (4.3-11.0)
[2022-10-31 22:17] LABS: SMEAR SCAN COMMENT YES
[2022-10-31 22:28] LABS: AMPHETAMINE SCREEN, URINE NEGATIVE (NEGATIVE); BARBITURATE SCREEN URINE NEGATIVE (NEGATIVE); BENZODIAZEPINES SCREEN URINE POSITIVE (NEGATIVE); CANNABINOID SCREEN, URINE NEGATIVE (NEGATIVE); COCAINE SCREEN URINE NEGATIVE (NEGATIVE); METHADONE STAT NEGATIVE (NEGATIVE); OPIATE SCREEN URINE NEGATIVE (NEGATIVE); OXYCODONE STAT NEGATIVE (NEGATIVE); PROPOXYPHENE STAT NEGATIVE (NEGATIVE); TRICYCLIC ANTIDEPRESSANTS SCRE NEGATIVE (NEGATIVE)
[2022-10-31 22:31] LABS: ALBUMIN 3.9 GM/DL (3.2-4.5); CHLORIDE 111 MMOL/L (98-107); POTASSIUM 3.1 MMOL/L (3.6-5.0); SODIUM 145 MMOL/L (135-145)
[2022-10-31 22:32] LABS: CALCIUM 8.6 MG/DL (8.5-10.1)
[2022-10-31 22:34] LABS: GLUCOSE 113 MG/DL (70-105); TOTAL PROTEIN 7.3 GM/DL (6.4-8.2)
[2022-10-31 22:35] LABS: BILIRUBIN,TOTAL 0.3 MG/DL (0.1-1.0); CARBON DIOXIDE 23 MMOL/L (21-32)
[2022-10-31 22:37] LABS: ALKALINE PHOSPHATASE 74 U/L (40-136); CREATININE SERUM 0.74 MG/DL (0.60-1.30); GFR ESTIMATED 107
[2022-10-31 22:38] LABS: BUN/CREATININE RATIO 3
[2022-10-31 22:40] LABS: ALANINE AMINOTRANSFERASE 49 U/L (0-55)
[2022-10-31 22:43] LABS: BACTERIA,URINE NEGATIVE /HPF; RBC,URINE RARE /HPF; SQUAMOUS EPITHELIAL CELL,UR RARE /HPF
== END 2022-11-01 00:15 | disposition home or self-care (01) ==
LOC: EDUNIT# 21:44 → ER 21:45
DX: F10.229 Alcohol dependence with intoxication, unspecified (principal); E87.6 Hypokalemia; F19.90 Other psychoactive substance use, unspecified, uncomplicated; F17.210 Nicotine dependence, cigarettes, uncomplicated; E66.9 Obesity, unspecified; Y90.8 Blood alcohol level of 240 mg/100 ml or more; Z68.41 Body mass index [BMI] 40.0-44.9, adult; Z91.040 Latex allergy status
CPT/HCPCS: 51702; 80053; 80306; 81000; 84703; 85025; 93041; 99284; G0480 ×2; 36415; 80320; 80329

== ENCOUNTER 2022-11-02 16:43 | Emergency (ER) | payer SELFPAY ==
[~2022-11-02] VITALS: Ht 160 cm; Wt 129.2 kg
[2022-11-02] MEDS ORDERED: NS IV 1000 ML 1,000 ML IV SCH ×2 (17:15→20:45)
[2022-11-02 17:33] LABS: EOSINOPHILS % (AUTO) 0 % (0-10); MEAN CORPUSCULAR HEMOGLOBIN 28 pg (25-34)
[2022-11-02 17:35] LABS: BASOPHILS % (AUTO) 1 % (0-10); HEMATOCRIT 43 % (35-52); LYMPHOCYTES # (AUTO) 1.2 10^3/uL (1.0-4.0); LYMPHOCYTES % (AUTO) 22 % (12-44); MEAN CORPUSCULAR HGB CONC 33 g/dL (32-36); MEAN CORPUSCULAR VOLUME 84 fL (80-99); MEAN PLATELET VOLUME 9.2 fL (9.0-12.2); MONOCYTES # (AUTO) 0.3 10^3/uL (0.0-1.0); MONOCYTES % (AUTO) 6 % (0-12); NEUTROPHILS # (AUTO) 3.8 10^3/uL (1.8-7.8); NEUTROPHILS % (AUTO) 71 % (42-75); PLATELET COUNT 132 10^3/uL (130-400); WHITE BLOOD COUNT 5.3 10^3/uL (4.3-11.0)
[2022-11-02 17:39] LABS: ALBUMIN 3.9 GM/DL (3.2-4.5); CHLORIDE 106 MMOL/L (98-107); SODIUM 143 MMOL/L (135-145)
[2022-11-02 17:42] LABS: GLUCOSE 117 MG/DL (70-105); TOTAL PROTEIN 7.3 GM/DL (6.4-8.2)
[2022-11-02 17:43] LABS: CARBON DIOXIDE 23 MMOL/L (21-32)
[2022-11-02 17:44] LABS: BILIRUBIN,TOTAL 0.6 MG/DL (0.1-1.0)
[2022-11-02 17:46] LABS: ALKALINE PHOSPHATASE 84 U/L (40-136); CREATININE SERUM 0.88 MG/DL (0.60-1.30); GFR ESTIMATED 87
[2022-11-02 17:47] LABS: BUN/CREATININE RATIO 5
[2022-11-02 17:48] LABS: SALICYLATE < 5.0 MG/DL (5.0-20.0)
[2022-11-02 17:49] LABS: ALANINE AMINOTRANSFERASE 113 U/L (0-55)
[2022-11-02] MEDS ORDERED: KCL 20 MEQ TAB (K-DUR) PO ONE (18:00)
[2022-11-02] MEDS ORDERED: FOLIC ACID 1 MG TAB PO ONE (18:00)
[2022-11-02] MEDS ORDERED: THIAMINE 100 MG/ML 2 ML (VITAMIN B-1) VIAL IV ONE (18:00)
--- NOTE | 2022-11-02 18:12 | ED General ---
General Chief Complaint: Substance Abuse Stated Complaint: INTOXICATED Nursing Triage Note: pt presents to ED via EMS with reports of drinking a full bottle of rubbing alcohol earlier today. pt states she usually drinks a fifth of vodka daily but was out of vodka so resorted to stealing the rubbing alcohol from [facility]. pt is homeless and claims to camp outside of [facility]. pt denies SI/HI. Source of Information: Patient Exam Limitations: Intoxication History of Present Illness Date Seen by Provider: Nov 02, 2022 Time Seen by Provider: 16:55 Initial Comments 37-year-old female presents to the ED via EMS from the [facility] with reports of drinking rubbing alcohol. She states she did not do this to kill herself, states she is an alcoholic and drink it because she is unable to get liquor. States she normally drinks 1/5 of vodka a day. She states she has been drinking rubbing alcohol for the last 3 days due to being unable to get regular alcohol. She is unsure how much she drank, unable to state when she last drank it. States she stole it from the [facility], states they use it to clean the beds there. She states that she wants to get clean. States she has withdrawn in the past and had seizures. At first patient was conversing with this provider and answering all questions, when this provider asked her orientation questions, she stated she did not know the answers, and then was unable to answer other questions regarding how much rubbing alcohol she has been drinking. She is stated that she is in [place], and and that it is August 2020. She reported abdominal burning and nausea. She was able to report that she has a past medical history of GERD which she takes omeprazole for. And she has had a D&C and ankle surgery. Patient was admitted last week on 10/30 for hypokalemia as well as drinking rubbing alcohol. At that time, according to the notes, she had minimal alcohol withdrawal symptoms. Allergies and Home Medications Allergies Coded Allergies: Latex, Natural Rubber (Unverified Allergy, Unknown, 10/30/22) Patient Home Medication List Home Medication List Reviewed: Yes No Active Prescriptions or Reported Meds Review of Systems Review of Systems Constitutional: see HPI Past Hcqagqw-Scuzpo-Neggsj Hx Patient Social History Tobacco Use?: Yes Tobacco type used: Cigarettes Smoking Status: Current Everyday Smoker Substance use?: No Alcohol Use?: Yes Alcohol type: Hard Liquor Alcohol Frequency: Daily Pt feels they are or have been: No Immunizations Up To Date Influenza Vaccine Up-to-Date: No; Not Current First/Initial COVID19 Vaccinat: NONE Second COVID19 Vaccination Michael: NONE Third COVID19 Vaccination Date: NONE Past Medical History Surgery/Hospitalization HX: BIPOLAR, ANXIETY, DEPRESSION, INSOMNIA, AGORAPHOBIC, LIVER DISEASE DNC, RIGHT ANKLE Surgeries: Yes Orthopedic Respiratory: No Cardiac: No Neurological: No Genitourinary: No Gastrointestinal: Yes Liver Disease/Jaundice Musculoskeletal: Yes (RIGHT ANKLE SURGERY) Endocrine: No (OBESE) HEENT: No Cancer: No Psychosocial: Yes (ALCOHOL AND SUBSTANCE ABUSE; AGORAPHOBIA) Sleep Difficulties, Anxiety, Bipolar, Depression Integumentary: No Blood Disorders: No Family Medical History SOCIAL HISTORY: -SMOKES AT LEAST 1 PPD -ETOH--DRINKS AT LEAST A FIFTH OF VODKA A DAY, FREQUENTLY MORE THAN THAT -DRUGS--METHAMPHETAMINES, AMPHETAMINES, HEROIN, RX DRUGS. PAST SURGICAL HISTORY: -RIGHT ANKLE SURGERY Physical Exam Vital Signs Vital Signs - First Documented 11/02/22 16:43 Temp 36.3 Pulse 132 Resp 27 B/P (MAP) 128/81 (97) Pulse Ox 97 O2 Delivery Room Air Capillary Refill : Less Than 3 Seconds Height, Weight, BMI Height: '" Weight: lbs. oz. kg; 50.00 BMI Method: General Appearance: No Apparent Distress, WD/WN Neck: Normal Inspection, Supple Respiratory: Lungs Clear, Normal Breath Sounds, No Accessory Muscle Use, No R espiratory Distress Cardiovascular: No Edema, No Gallop, No JVD, No Murmur Neurologic/Psychiatric: Alert, Normal Mood/Affect, Disoriented Skin: Normal Color, Warm/Dry Progress/Results/Core Measures Suspected Sepsis SIRS Temperature: Pulse: 132 Respiratory Rate: 27 Laboratory Tests 11/02/22 17:20: White Blood Count 5.3 Blood Pressure 128 /81 Mean: 97 Laboratory Tests 11/02/22 17:20: Creatinine 0.88, Platelet Count 132, Total Bilirubin 0.6 Results/Orders Lab Results Laboratory Tests Test 11/02/22 17:20 11/02/22 17:55 11/02/22 18:37 Range/Units White Blood Count 5.3 4.3-11.0 10^3/uL Red Blood Count 5.05 3.80-5.11 10^6/uL Hemoglobin 14.0 11.5-16.0 g/dL Hematocrit 43 35-52 % Mean Corpuscular Volume 84 80-99 fL Mean Corpuscular Hemoglobin 28 25-34 pg Mean Corpuscular Hemoglobin Concent 33 32-36 g/dL Red Cell Distribution Width 17.7 H 10.0-14.5 % Platelet Count 132 130-400 10^3/uL Mean Platelet Volume 9.2 9.0-12.2 fL Immature Granulocyte % (Auto) 0 % Neutrophils (%) (Auto) 71 42-75 % Lymphocytes (%) (Auto) 22 12-44 % Monocytes (%) (Auto) 6 0-12 % Eosinophils (%) (Auto) 0 0-10 % Basophils (%) (Auto) 1 0-10 % Neutrophils # (Auto) 3.8 1.8-7.8 10^3/uL Lymphocytes # (Auto) 1.2 1.0-4.0 10^3/uL Monocytes # (Auto) 0.3 0.0-1.0 10^3/uL Eosinophils # (Auto) 0.0 0.0-0.3 10^3/uL Basophils # (Auto) 0.0 0.0-0.1 10^3/uL Immature Granulocyte # (Auto) 0.0 0.0-0.1 10^3/uL Percent Immature Platelet Fraction 2.2 0.0-7.6 % Sodium Level 143 135-145 MMOL/L Potassium Level 3.0 L 3.6-5.0 MMOL/L Chloride Level 106 98-107 MMOL/L Carbon Dioxide Level 23 21-32 MMOL/L Anion Gap 14 5-14 MMOL/L Blood Urea Nitrogen 4 L 7-18 MG/DL Creatinine 0.88 0.60-1.30 MG/DL Estimat Glomerular Filtration Rate 87 BUN/Creatinine Ratio 5 Glucose Level 117 H 70-105 MG/DL Calcium Level 9.0 8.5-10.1 MG/DL Corrected Calcium 9.1 8.5-10.1 MG/DL Total Bilirubin 0.6 0.1-1.0 MG/DL Aspartate Amino Transf (AST/SGOT) 205 H 5-34 U/L Alanine Aminotransferase (ALT/SGPT) 113 H 0-55 U/L Alkaline Phosphatase 84 40-136 U/L Total Protein 7.3 6.4-8.2 GM/DL Albumin 3.9 3.2-4.5 GM/DL Salicylates Level < 5.0 L 5.0-20.0 MG/DL Acetaminophen Level < 10 L 10-30 UG/ML Serum Alcohol < 10 <10 MG/DL Total Creatine Kinase 59 29-168 U/L Beta-Hydroxybutyrate (Chem panel) 0.85 H 0.00-0.27 MMOL/L My Orders Orders - DERECK MALONE APRN Cbc With Automated Diff (11/02/22 17:04) Comprehensive Metabolic Panel (11/02/22 17:04) Alcohol (11/02/22 17:04) Acetaminophen (11/02/22 17:04) Salicylate (11/02/22 17:04) Ed Iv/Invasive Line Start (11/02/22 17:04) Ns Iv 1000 Ml (Sodium Chloride 0.9%) (11/02/22 17:15) Ethylene Glycol (11/02/22 17:55) Methanol (Volatiles) (11/02/22 17:55) Folic Acid Tablet (Folic Acid Tablet) (11/02/22 18:00) Thiamine Injection (Vitamin B-1 Injectio (11/02/22 18:00) Potassium Chloride (Tablet) (K Dur Table (11/02/22 18:00) Beta Hydroxybutyrate (11/02/22 18:19) Ns Iv 1000 Ml (Sodium Chloride 0.9%) (11/02/22 20:45) Creatine Kinase (11/02/22 20:38) Lidocaine 2% Viscous 15 Ml (Xylocaine Vi (11/02/22 21:15) Antacid Suspension (Mylanta Suspension (11/02/22 21:15) Medications Given in ED Current Medications Medications Dose Ordered Sig/Danya Route Start Time Stop Time Status Last Admin Dose Admin Al Hydrox/Mg Hydrox/Simethicone 30 ml ONCE ONCE PO 11/02/22 21:15 11/02/22 21:16 DC 11/02/22 21:28 30 ML Folic Acid 1 mg ONCE ONCE PO 11/02/22 18:00 11/02/22 18:01 DC 11/02/22 18:13 1 MG Lidocaine HCl 15 ml ONCE ONCE PO 11/02/22 21:15 11/02/22 21:16 DC 11/02/22 21:28 15 ML Potassium Chloride 40 meq ONCE ONCE PO 11/02/22 18:00 11/02/22 18:01 DC 11/02/22 18:13 40 MEQ Thiamine HCl 100 mg ONCE ONCE IV 11/02/22 18:00 11/02/22 18:01 DC 11/02/22 18:13 100 MG Vital Signs/I&O 11/02/22 11/02/22 16:43 22:05 Temp 36.3 Pulse 132 105 Resp 27 24 B/P (MAP) 128/81 (97) 142/100 Pulse Ox 97 97 O2 Delivery Room Air Room Air Capillary Refill : Less Than 3 Seconds Blood Pressure Mean: 97 Progress Note #1: Time: 18:14 Progress Note Patient seen and evaluated, resting company in bed, no acute distress, tearful during interview. Poison control contacted for recommendations for evaluation and treatment. They recommend obtaining isopropyl alcohol level, ethylene glycol level, ethyl alcohol level, acetone level, CMP, and beta hydroxybutyrate. They state that rubbing alcohol can cause a GI bleed, and to monitor for occult blood in her stool or vomit. Other management is symptomatic. They also recommend a banana bag for thiamine and folic acid. Work-up initiated including CBC, CMP, alcohol, Tylenol, salicylate, UDS, UA. Recommended labs from poison control also ordered. IV fluids ordered. Thiamine and folic acid ordered. Potassium level low at 3.0. Oral potassium ordered. Results of lab so far reviewed. CBC grossly normal, WBC 5.3, hemoglobin 14.0. CMP shows decreased potassium 3.0. Normal CO2 23, normal anion gap 14, elevated AST 205, elevated ALT 113, these are higher than previous blood draw. Alcohol tox labs are send outs, will not result today. Progress Note #2: Time: 20:00 Progress Note Labs reviewed. Beta hydroxybutyrate slightly elevated 0.85. Salicylate less than 10. Tylenol less than 10. Alcohol serum less than 10. Progress Note #3: Time: 20:40 Progress Note Spoke with poison control again regarding patient. Called to see how patient was doing. They state that admission is left up to the clinician. Informed them of the mostly normal lab results. They recommend a CK as well as due to meth abuse. CK has been ordered. Progress Note #4: Time: 21:15 Progress Note CK normal at 59. She has been unable to provide a urine sample. She did use the commode, but urine sample was contaminated with stool. Vitals have remained stable, tachycardia has improved. Patient is showing no signs of withdrawal. At this time, I do not see any reason for admission. Results discussed with patient. Patient is upset because she does not think she has anywhere to go. Nursing staff was able to contact the [facility], they said that she is able to go back to the [facility]. There is no transportation at this time. Patient has attempted to walk out of the ER several times without her paperwork since being told she would be discharged. I was able to discuss discharge instructions and return precautions with patient. Patient is alert and oriented x4 and ambulates with steady gait. Nursing staff was waiting to get pants for patient. [employer] was able to provide pants, but patient left without putting them on. She walked outside wrapped in her blanket. Departure Impression Primary Impression: Polysubstance abuse Disposition: 01 HOME, SELF-CARE Condition: Stable Departure-Patient Inst. Decision time for Depature: 21:20 Referrals: NO,LOCAL PHYSICIAN (PCP/Family) Primary Care Physician Patient Instructions: ALCOHOL AND SUBSTANCE ABUSE Add. Discharge Instructions: Stop drinking rubbing alcohol. Stop drinking alcohol. Follow-up with [facility] as planned for alcohol treatment. Their phone number is [phone]. Follow-up with primary care provider. Return for recurrent vomiting, uncontrollable pain, or any other new, concerning, or worsening symptoms. All discharge instructions reviewed with patient and/or family. Voiced understanding. Scripts No Active Prescriptions or Reported Meds DERECK MALONE APRN Nov 02, 2022 18:12
[2022-11-02 18:19] LABS: ACETAMINOPHEN < 10 UG/ML (10-30)
[2022-11-02] MEDS ORDERED: ANTACID SUSP 30 ML UDC (MYLANTA) PO ONE (21:15)
[2022-11-02] MEDS ORDERED: LIDOCAINE 2% VISCOUS 15 ML UDC PO ONE (21:15)
[2022-11-02 22:05] VITALS: BP 142/100
== END 2022-11-02 21:30 | disposition home or self-care (01) ==
LOC: EDUNIT# 16:43 → ER 16:44
DX: F19.10 Other psychoactive substance abuse, uncomplicated (principal); E87.6 Hypokalemia; F17.210 Nicotine dependence, cigarettes, uncomplicated; R74.01 Elevation of levels of liver transaminase levels; E71.32 Disorders of ketone metabolism; K21.9 Gastro-esophageal reflux disease without esophagitis; Z68.43 Body mass index [BMI] 50.0-59.9, adult; Z79.899 Other long term (current) drug therapy; Z28.310 Unvaccinated for COVID-19; Z91.040 Latex allergy status
CPT/HCPCS: 80053; 82010; 82550; 82693; 84600; 85025; 99284; G0480 ×3; 36415; 80320; 80329